=== PATIENT | male | born 1970 | race Caucasian/White ===

== ENCOUNTER 2017-03-28 16:11 | Emergency (ER) | payer OTHER ==
[~2017-03-28] VITALS: Ht 180.3 cm; Wt 106.8 kg
[2017-03-28 16:13] VITALS: BP 156/97; PULSE 88; TEMP 98.1
[2017-03-28] MEDS ORDERED: ZESTRIL 20MG TA20 MG PO (16:15)
[2017-03-28] MEDS ORDERED: ASPIRIN 81M81 MG/TA2 PO (16:15)
[2017-03-28] MEDS ORDERED: LIPITOR 10MG10 MG (16:15)
[2017-03-28] MEDS ORDERED: CLARITIN 1010 MG/TAB PO (16:16)
== END 2017-03-28 17:21 | disposition home or self-care (01) ==
LOC: COL.ER 16:11
DX: S91.331A Puncture wound without foreign body, right foot, initial encounter (principal); W22.8XXA Striking against or struck by other objects, initial encounter; Y92.89 Other specified places as the place of occurrence of the external cause; I10 Essential (primary) hypertension; Z23 Encounter for immunization

== ENCOUNTER 2019-06-30 10:32 | Day surgery (SDC) | payer BC ==
[~2019-06-30] VITALS: Ht 180.3 cm; Wt 103.2 kg
[~2019-06-30 10:32] MED LIST: ASPIRIN 81M81 MG/TA2 PO; CLARITIN 1010 MG/TAB PO; LIPITOR 10MG10 MG; ZESTRIL 20MG TA20 MG PO
[2019-06-30] MEDS ORDERED: ASPIRIN 81M81 MG/TA2 PO (11:04)
[2019-06-30] MEDS ORDERED: NORVASC 5MG5 MG/TAB PO (11:04)
[2019-06-30] MEDS ORDERED: LIPITOR 10MG10 MG PO (11:05)
[2019-06-30] MEDS ORDERED: NEXIUM 20MG20 MG PO (11:05)
[2019-06-30] MEDS ORDERED: GLUCOSAMINE & C1 CA2 PO (11:06)
[2019-06-30] MEDS ORDERED: MOTRIN 200200 MG/TAB PO (11:07)
[2019-06-30] MEDS ORDERED: PRINIVIL40 MG PO (11:08)
[2019-06-30] MEDS ORDERED: MEN'S MULTIVIT1 EAC1 PO (11:08)
[2019-06-30] MEDS ORDERED: VITAMIN D32000 I1 PO (11:10)
[2019-06-30 11:33] VITALS: BP 132/71; PULSE 91; TEMP 98.2
--- NOTE | 2019-06-30 11:57 | NUR ---
Patient is resting on cart and awaits surgery. Dr. Lira here and talking with patient and sister.
[2019-06-30 13:30] VITALS: BP 108/60; PULSE 81
--- NOTE | 2019-06-30 13:30 | NUR ---
Patient returns to room 2 per cart from surgery and is awake and alert. Temp 97.3 and room air sats 95%. Dressing clean and dry on the abdomen. IV fluids infusing and site is free of redness. Siderails up x2 and call light in reach. Allowed rest.
[2019-06-30] MEDS ORDERED: NORCO 325 MG-51 TAB PO (13:36)
[2019-06-30] MEDS ORDERED: MOTRIN 600600 MG/TAB PO (13:36)
[2019-06-30 13:45] VITALS: BP 115/73; PULSE 69
--- NOTE | 2019-06-30 13:45 | NUR ---
Patient drinking water and eating muffin. Denies pain or nausea. Room air sats 97%.
[2019-06-30 14:00] VITALS: BP 112/82; PULSE 70
--- NOTE | 2019-06-30 14:00 | NUR ---
Resting and eating muffin. Denies pain or nausea.
[2019-06-30 14:15] VITALS: BP 129/73; PULSE 70
--- NOTE | 2019-06-30 14:15 | NUR ---
Continues to deny pain or nausea. Repositions self in bed. Sister in room and talking with patient.
--- NOTE | 2019-06-30 14:30 | NUR ---
Patient dresses self. States that he is beginning to have some incisional soreness.
--- NOTE | 2019-06-30 14:38 | NUR ---
Medicated with [place] 5mg tablet in preparation for discharge and ride home.
--- NOTE | 2019-06-30 14:50 | NUR ---
Given dismissal instructions and voices understanding of home cares and follow up as ordered. Provided office number for questions and concerns. Instructed on limiting activities for four weeks. Instructed on no driving for 24hours. Instructed to begin Motrin 600mg at 1900 and to take every six hours with food and to avoid constipation by taking OTC laxative.
--- NOTE | 2019-06-30 14:55 | NUR ---
Patient dismissed to home per private vehicle driven by sister and taken to the front door per wheelchair and assisted into vehicle with instructions in hand.
== END 2019-06-30 14:55 | disposition home or self-care (01) ==
LOC: SDCO 10:32
DX: K42.9 Umbilical hernia without obstruction or gangrene (principal); Z79.82 Long term (current) use of aspirin; I10 Essential (primary) hypertension; E78.00 Pure hypercholesterolemia, unspecified; R73.01 Impaired fasting glucose; J30.1 Allergic rhinitis due to pollen; K21.9 Gastro-esophageal reflux disease without esophagitis
CPT/HCPCS: C1781; J0690; J1100; J1885; J2250; J2405; J2704; J3010; J7120